=== PATIENT | female | born 1980 | race Caucasian/White ===

== ENCOUNTER 2020-04-22 18:17 | Emergency (ER) | payer OTHER ==
[~2020-04-22] VITALS: Ht 162.6 cm; Wt 63.5 kg
[2020-04-22] MEDS ORDERED: SEROQUEL 100 M100 M1 PO (18:26)
[2020-04-22] MEDS ORDERED: ADDERALL 10 MG10 MG PO (18:26)
[2020-04-22] MEDS ORDERED: XANAX 0.5 MG0.5 MG PO (18:26)
[2020-04-22 18:53] LABS: ABSOLUTE MONOCYTES 0.4 thou/uL (0.0-1.2); BASOPHILS 0.5 %; EOSINOPHILS 0.3 %; HEMATOCRIT 41.6 % (37.0-47.0); LYMPHOCYTES 13.4 %; MCH 29.4 pg (26.0-34.0); MCHC 33.7 g/dL (28.0-37.0); MCV 87.2 fL (80.0-100.0); MONOCYTES 5.1 %; MPV 8.7 fl. (7.2-11.1); NUCLEATED RBCS 0 /100WBC; PLATELET COUNT* 176 thou/uL (150-400); POLYS 80.7 %; RBC 4.77 mil/uL (4.20-5.00); RDW-CV 12.9 % (10.5-14.5); WBC 7.4 thou/uL (4.0-11.0)
[2020-04-22 19:03] LABS: CALCIUM 8.5 mg/dL (8.5-10.1); CREATININE 0.7 mg/dL (0.6-1.3); POTASSIUM 3.2 mmol/L (3.5-5.1)
[2020-04-22 19:13] LABS: ALBUMIN 3.6 g/dL (3.4-5.0); TOTAL BILIRUBIN 0.5 mg/dL (<0.1-1.0); TOTAL PROTEIN 6.8 g/dL (6.4-8.2)
[2020-04-22] MEDS ORDERED: ATIVAN0.5 M1 PO (19:55)
[2020-04-22 20:13] VITALS: BP 119/71
--- NOTE | 2020-04-23 09:13 | EKG ---
[place] [address] ELECTROCARDIOGRAM REPORT Name: TRACEYJOSE Davon Room: [facility]#: [id number] Admission: 04/22/20 Attend Phys: Discharge: 04/22/20 Date of : 80 Date of Service: 04/22/201847 Report #: [id number] THIS REPORT FOR: //name// [facility] ED Test Date: 2020-04-22 Test Time: 18:48:31 Pat Name: JOSE WEBB Department: Room: Gender: Machine Heel Seat Laster: [facility] : 1980 Requested By: Robe Estrada Order Number: [id number] MD: Norris Waldron Measurements Intervals [place] Rate: 60 P: 55 HI: 163 QRS: 70 QRSD: 96 T: 74 QT: 468 QTc: 468 Interpretive Statements Sinus rhythm artifact noted No previous ECG available for comparison Electronically Signed On 04-23-2020 9:12:44 SHIFT MANAGER by Norris Waldron [email or web address] <ELECTRONICALLY SIGNED> By: Norris Waldron MD, [facility] 04/23/20911 47 1848 Norris Waldron MD, FACC /EPI
== END 2020-04-22 20:13 | disposition home or self-care (01) ==
LOC: M.ERS 18:17
PROVIDERS: Family Medicine
DX: F41.9 Anxiety disorder, unspecified (principal); Z20.828 Contact with and (suspected) exposure to other viral communicable diseases; R06.02 Shortness of breath; Z79.899 Other long term (current) drug therapy; Z88.8 Allergy status to other drugs, medicaments and biological substances